=== PATIENT | male | born 1965 | race African-American/Black ===

== ENCOUNTER 2016-09-11 18:54 | Emergency (ER) | payer MEDICAID ==
[~2016-09-11] VITALS: Ht 188 cm; Wt 90.0 kg
[2016-09-11] MEDS ORDERED: PHEN100C4 PO (19:03)
[2016-09-11] MEDS ORDERED: SODIUM CHLORIDE 0.9% 1,000 ML IV ONE (20:45)
[2016-09-11] MEDS ORDERED: NAPROXEN 500MG TABLET PO ONE (20:45)
[2016-09-11 21:01] LABS: BASOPHILS % 0.8 % (0.0-2.0); EOSINOPHILS % 0.7 % (0.0-5.0); HEMATOCRIT. 37.6 % (42.0-52.0); HEMOGLOBIN. 11.9 g/dL (14.0-18.0); LYMPHOCYTES % 19.7 % (20.0-50.0); MEAN CORPUSCULAR HEMOGLOBIN 28.2 pg (28.0-32.0); MEAN CORPUSCULAR HGB CONC 31.8 g/dL (31.0-37.0); MEAN CORPUSCULAR VOLUME 88.8 fL (80.0-94.0); MEAN PLATELET VOLUME 8.1 fl (7.4-10.4); MONOCYTES % 7.5 % (2.0-8.0); NEUTROPHILS % 71.3 % (40.0-76.0); PLATELET 202 x1000/uL (130-400); RED BLOOD CELL COUNT 4.23 mill/uL (4.7-6.1); RED CELL DISTRIBUTION WIDTH 14.6 % (11.6-14.6); WHITE BLOOD COUNT 10.4 x1000/uL (4.5-11.0)
[2016-09-11 21:11] LABS: ALANINE AMINOTRANSFERASE 28 IU/L (13-61); ALBUMIN 3.3 g/dL (3.4-5.0); ANION GAP 10; CALCIUM 9.2 mg/dL (8.5-10.1); CARBON DIOXIDE 31 mEq/L (21-32); CHLORIDE 108 mEq/L (98-107); INDEX HEMOLYSI 1 (1-3); INDEX ICTERIC 1 (1-4); INDEX LIPEMIC 1 (1-3); UREA NITROGEN BLOOD 18 mg/dL (7-21); eGFR > 60 mL/min (>60)
[2016-09-11 21:32] LABS: CLARITY URINE CLEAR (CLEAR); COLOR URINE YELLOW (YELLOW); GLUCOSE URINE NEGATIVE (NEGATIVE); KETONES URINE NEGATIVE (NEGATIVE); LEUKOCYTE ESTERASE URINE NEGATIVE (NEGATIVE); NITRITE URINE NEGATIVE (NEGATIVE); OCCULT BLOOD URINE NEGATIVE (NEGATIVE); PROTEIN URINE NEGATIVE (NEGATIVE); SPECIFIC GRAVITY URINE 1.021 (1.005-1.030)
[2016-09-11] MEDS ORDERED: PHENYTOIN SODIUM 1,000 MG in SODIUM CHLORIDE 0.9% 100 ML IV NR (22:15)
[2016-09-11 23:00] VITALS: BP 126/76
== END 2016-09-12 01:20 | disposition home or self-care (01) ==
LOC: ER 19:17
DX: G40.909 Epilepsy, unspecified, not intractable, without status epilepticus (principal)
CPT/HCPCS: 36415; 80053; 80185; 81003; 85025; 96361; 96365; 96366; 99285; J1165; Z7610; J7030; J7050

== ENCOUNTER 2017-01-06 09:42 | Emergency (ER) | payer MEDICAID ==
[~2017-01-06] VITALS: Ht 177.8 cm; Wt 80.0 kg
[~2017-01-06 09:42] MED LIST: PHEN100C4 PO
[2017-01-06] MEDS ORDERED: SODIUM CHLORIDE 0.9% 1,000 ML IV ONE (09:52)
[2017-01-06 10:42] LABS: BASOPHILS % 0.5 % (0.0-2.0); EOSINOPHILS % 0.8 % (0.0-5.0); HEMATOCRIT. 35.6 % (42.0-52.0); HEMOGLOBIN. 11.3 g/dL (14.0-18.0); LYMPHOCYTES % 15.9 % (20.0-50.0); MEAN CORPUSCULAR HEMOGLOBIN 27.9 pg (28.0-32.0); MEAN CORPUSCULAR VOLUME 87.9 fL (80.0-94.0); MEAN PLATELET VOLUME 8.2 fl (7.4-10.4); MONOCYTES % 7.4 % (2.0-8.0); NEUTROPHILS % 75.4 % (40.0-76.0); PLATELET 212 x1000/uL (130-400); RED BLOOD CELL COUNT 4.05 mill/uL (4.7-6.1); RED CELL DISTRIBUTION WIDTH 14.2 % (11.6-14.6)
[2017-01-06 10:44] LABS: PARTIAL THROMBOPLASTIN TIME 25.4 sec (24.0-34.0); PROTHROMBIN TIME 10.7 sec
[2017-01-06 10:50] LABS: CARBON DIOXIDE 28 mEq/L (21-32); CHLORIDE 109 mEq/L (98-107); ETHANOL BLOOD < 10 mg/dL; PHENYTOIN 0.6 ug/mL (10-20)
[2017-01-06] MEDS ORDERED: PHENYTOIN SODIUM 1,000 MG in SODIUM CHLORIDE 0.9% 100 ML IV ONE (11:00)
[2017-01-06] MEDS ORDERED: CARBAMAZEPINE 100MG TABLET CHEW PO ONE (12:00)
[2017-01-06 13:37] VITALS: BP 122/87
== END 2017-01-06 13:41 | disposition home or self-care (01) ==
LOC: ER 09:48
DX: S00.83XA Contusion of other part of head, initial encounter (principal); R56.9 Unspecified convulsions; R79.89 Other specified abnormal findings of blood chemistry; I10 Essential (primary) hypertension; Z91.19 Patient's noncompliance with other medical treatment and regimen; X58.XXXA Exposure to other specified factors, initial encounter; Y93.89 Activity, other specified; Y92.89 Other specified places as the place of occurrence of the external cause; Y99.8 Other external cause status
CPT/HCPCS: 36415; 70450; 80048; 80156; 80185; 83735; 85025; 85610; 85730; 96365; 96366; 99285; G0482; J1165; J7030; J7050

== ENCOUNTER 2017-01-08 20:01 | Emergency (ER) | payer MEDICAID ==
[~2017-01-08] VITALS: Ht 185.4 cm; Wt 90.0 kg
[2017-01-09 00:02] LABS: ETHANOL BLOOD < 10 mg/dL
[2017-01-09 00:09] LABS: CARBAMAZEPINE < 0.5 ug/mL (4-12)
[2017-01-09] MEDS ORDERED: PHENYTOIN SODIUM EXTENDED 100MG CAPSULE PO NR (02:15)
[2017-01-09] MEDS ORDERED: CARBAMAZEPINE 200MG TABLET PO NR (02:15)
[2017-01-09 03:17] VITALS: BP 127/77
== END 2017-01-09 03:52 | disposition home or self-care (01) ==
LOC: ER 21:17
DX: G40.909 Epilepsy, unspecified, not intractable, without status epilepticus (principal); R03.0 Elevated blood-pressure reading, without diagnosis of hypertension; M95.2 Other acquired deformity of head; Z87.820 Personal history of traumatic brain injury; Z98.890 Other specified postprocedural states; F17.210 Nicotine dependence, cigarettes, uncomplicated
CPT/HCPCS: 36415; 80156; 80185; 99284; G0482; Z7610

== ENCOUNTER 2018-01-24 16:14 | Emergency (ER) | payer MEDICAID ==
[~2018-01-24] VITALS: Ht 177.8 cm; Wt 75.0 kg
[~2018-01-24 16:14] MED LIST changes: +KEPP500 PO
[2018-01-24] MEDS ORDERED: BACITRACIN ZINC OINT UDPKT TOP ONE (19:00)
[2018-01-24 20:57] LABS: BASOPHILS % 0.3 % (0.0-2.0); EOSINOPHILS % 0.7 % (0.0-5.0); HEMATOCRIT. 38.5 % (42.0-52.0); HEMOGLOBIN. 12.5 g/dL (14.0-18.0); LYMPHOCYTES % 21.1 % (20.0-50.0); MEAN CORPUSCULAR VOLUME 86.7 fL (80.0-94.0); MEAN PLATELET VOLUME 8.4 fl (7.4-10.4); MONOCYTES % 7.9 % (2.0-8.0); PLATELET 211 x1000/uL (130-400); RED BLOOD CELL COUNT 4.44 mill/uL (4.7-6.1); RED CELL DISTRIBUTION WIDTH 14.8 % (11.6-14.6)
[2018-01-24 21:03] LABS: CHLORIDE 107 mEq/L (98-107)
[2018-01-24] MEDS ORDERED: CARBAMAZEPINE 200MG TABLET PO ONE (21:45)
[2018-01-24 22:37] VITALS: BP 147/89
== END 2018-01-24 22:37 | disposition home or self-care (01) ==
LOC: ER 18:28
DX: S80.211A Abrasion, right knee, initial encounter (principal); R56.9 Unspecified convulsions; F17.200 Nicotine dependence, unspecified, uncomplicated; W01.0XXA Fall on same level from slipping, tripping and stumbling without subsequent striking against object, initial encounter; Y93.9 Activity, unspecified; Y92.9 Unspecified place or not applicable
CPT/HCPCS: 36415; 70450; 71045; 73562; 80053; 80156; 80185; 85025; 99285; Z7610

== ENCOUNTER 2018-01-27 17:57 | Emergency (ER) | payer MEDICAID ==
[~2018-01-27] VITALS: Ht 182.9 cm; Wt 78.0 kg
[2018-01-27 18:03] VITALS: BP 125/82
== END 2018-01-27 20:17 | disposition left against medical advice (07) ==
LOC: ER 17:57
DX: R56.9 Unspecified convulsions (principal)
CPT/HCPCS: 99283

== ENCOUNTER 2018-03-28 10:18 | Emergency (ER) | payer MEDICAID ==
[~2018-03-28] VITALS: Ht 190.5 cm; Wt 75.0 kg
[2018-03-28 11:38] LABS: BASOPHILS % 0.6 % (0.0-2.0); EOSINOPHILS % 1.5 % (0.0-5.0); HEMATOCRIT. 41.3 % (42.0-52.0); HEMOGLOBIN. 13.2 g/dL (14.0-18.0); LYMPHOCYTES % 28.6 % (20.0-50.0); MEAN CORPUSCULAR HEMOGLOBIN 28.7 pg (28.0-32.0); MEAN CORPUSCULAR VOLUME 89.4 fL (80.0-94.0); MEAN PLATELET VOLUME 8.8 fl (7.4-10.4); MONOCYTES % 9.8 % (2.0-8.0); NEUTROPHILS % 59.5 % (40.0-76.0); PLATELET 193 x1000/uL (130-400); RED BLOOD CELL COUNT 4.61 mill/uL (4.7-6.1); RED CELL DISTRIBUTION WIDTH 14.5 % (11.6-14.6)
[2018-03-28 11:40] LABS: CHLORIDE 110 mEq/L (98-107)
[2018-03-28 11:47] LABS: ETHANOL BLOOD < 10 mg/dL
[2018-03-28 11:48] LABS: CARBAMAZEPINE 2.4 ug/mL (4-12)
[2018-03-28 11:50] LABS: PHENOBARBITAL < 2.1 ug/mL (15.0-40.0); VALPROIC ACID < 3.0 ug/mL (50-100)
[2018-03-28 13:53] VITALS: BP 123/80
== END 2018-03-28 13:57 | disposition home or self-care (01) ==
LOC: ER 10:34
DX: R56.9 Unspecified convulsions (principal); H54.40 Blindness, one eye, unspecified eye; F17.200 Nicotine dependence, unspecified, uncomplicated; Z98.890 Other specified postprocedural states; Z79.899 Other long term (current) drug therapy
CPT/HCPCS: 36415; 80053; 80156; 80165; 80184; 80185; 85025; 99284; G0482

== ENCOUNTER 2018-05-01 02:37 | Inpatient (IN) | payer MEDICAID ==
[~2018-05-01] VITALS: Ht 332.7 cm; Wt 66.4 kg
[2018-05-01] MEDS ORDERED: SODIUM CHLORIDE 0.9% 1,000 ML IV ONE (02:49)
[2018-05-01 03:57] LABS: INR 1.1; PROTHROMBIN TIME 10.8 sec (9.1-11.1)
[2018-05-01 03:59] LABS: BASOPHILS % 0.4 % (0.0-2.0); HEMATOCRIT. 36.5 % (42.0-52.0); HEMOGLOBIN. 11.5 g/dL (14.0-18.0); LYMPHOCYTES % 27.9 % (20.0-50.0); MEAN CORPUSCULAR HEMOGLOBIN 28.2 pg (28.0-32.0); MEAN CORPUSCULAR VOLUME 89.6 fL (80.0-94.0); MEAN PLATELET VOLUME 8.1 fl (7.4-10.4); NEUTROPHILS % 61.7 % (40.0-76.0); PLATELET 202 x1000/uL (130-400); RED BLOOD CELL COUNT 4.07 mill/uL (4.7-6.1); RED CELL DISTRIBUTION WIDTH 14.2 % (11.6-14.6)
[2018-05-01 04:02] LABS: CHLORIDE 112 mEq/L (98-107); ETHANOL BLOOD < 10 mg/dL
[2018-05-01] MEDS ORDERED: CLONIDINE 0.1MG TABLET PO PRN (08:00)
[2018-05-01] MEDS ORDERED: LORAZEPAM 2MG/ML CPJ IV PRN (08:00)
[2018-05-01] MEDS ORDERED: ONDANSETRON HCL 4MG/2ML INJ IV PRN (08:00)
[2018-05-01] MEDS ORDERED: GUAIFENESIN 200MG/10ML SUGAR FREE UDC PO PRN (08:00)
[2018-05-01] MEDS ORDERED: DOCUSATE SODIUM 100MG CAPSULE PO PRN (08:00)
[2018-05-01 10:00] VITALS: BP 125/70
[2018-05-01 12:00] VITALS: BP 119/72
[2018-05-01 13:58] VITALS: BP 125/70
[2018-05-01] MEDS: PHENYTOIN SODIUM EXTENDED 100MG CAPSULE PO SCH ×2 (14:53→19:02)
[2018-05-01] MEDS: AMLODIPINE 10MG TABLET PO SCH (14:53)
[2018-05-01] MEDS: GABAPENTIN 300MG CAPSULE PO SCH (14:54)
[2018-05-01] MEDS: HYDROCODONE/ACETAMINOPHEN 5/325MG TABLET PO PRN (14:54)
[2018-05-01 16:40] VITALS: BP 125/73
[2018-05-01] MEDS: SODIUM CHLORIDE 0.9% 1,000 ML IV SCH (19:03)
[2018-05-01 20:00] VITALS: BP 112/66
[2018-05-01] MEDS: CARBAMAZEPINE 200MG TABLET PO SCH (20:47)
[2018-05-01] MEDS ORDERED: POTASSIUM CHLORIDE 20MEQ TABLET SR PO NR (21:30)
[2018-05-01 23:47] VITALS: BP 112/59
[2018-05-02] MEDS: SODIUM CHLORIDE 0.9% 1,000 ML IV SCH ×2 (03:40→16:12)
[2018-05-02 04:47] VITALS: BP 129/74
[2018-05-02 08:00] VITALS: BP 137/59
[2018-05-02] MEDS: AMLODIPINE 10MG TABLET PO SCH (08:32)
[2018-05-02] MEDS: PHENYTOIN SODIUM EXTENDED 100MG CAPSULE PO SCH ×3 (08:32→16:15)
[2018-05-02] MEDS: GABAPENTIN 300MG CAPSULE PO SCH (08:32)
[2018-05-02] MEDS: CARBAMAZEPINE 200MG TABLET PO SCH ×2 (08:32→21:53)
[2018-05-02 10:49] LABS: BASOPHILS % 0.4 % (0.0-2.0); EOSINOPHILS % 0.5 % (0.0-5.0); HEMATOCRIT. 39.2 % (42.0-52.0); HEMOGLOBIN. 12.5 g/dL (14.0-18.0); LYMPHOCYTES % 16.2 % (20.0-50.0); MEAN CORPUSCULAR HEMOGLOBIN 28.6 pg (28.0-32.0); MEAN CORPUSCULAR VOLUME 89.7 fL (80.0-94.0); MEAN PLATELET VOLUME 8.2 fl (7.4-10.4); MONOCYTES % 7.6 % (2.0-8.0); NEUTROPHILS % 75.3 % (40.0-76.0); PLATELET 111 x1000/uL (130-400); RED BLOOD CELL COUNT 4.37 mill/uL (4.7-6.1); RED CELL DISTRIBUTION WIDTH 14.5 % (11.6-14.6)
[2018-05-02 11:46] LABS: CHLORIDE 115 mEq/L (98-107)
[2018-05-02 12:00] VITALS: BP 115/20
[2018-05-02 16:00] VITALS: BP 110/65
[2018-05-02 20:22] VITALS: BP 113/68
[2018-05-02] MEDS: HYDROCODONE/ACETAMINOPHEN 5/325MG TABLET PO PRN (21:53)
[2018-05-02] MEDS: TAMSULOSIN HCL 0.4MG SR CAPSULE PO SCH (21:53)
[2018-05-03 00:11] VITALS: BP 111/64
[2018-05-03 04:00] VITALS: BP 107/55
[2018-05-03 08:00] VITALS: BP 131/59
[2018-05-03] MEDS: AMLODIPINE 10MG TABLET PO SCH (09:40)
[2018-05-03] MEDS: CARBAMAZEPINE 200MG TABLET PO SCH ×2 (09:41→21:35)
[2018-05-03] MEDS: PHENYTOIN SODIUM EXTENDED 100MG CAPSULE PO SCH ×3 (09:41→17:47)
[2018-05-03] MEDS: GABAPENTIN 300MG CAPSULE PO SCH (09:41)
[2018-05-03] MEDS: HYDROCODONE/ACETAMINOPHEN 5/325MG TABLET PO PRN ×2 (09:55→21:38)
[2018-05-03 12:00] VITALS: BP 148/66
[2018-05-03] MEDS: SODIUM CHLORIDE 0.9% 1,000 ML IV SCH (13:00)
[2018-05-03 16:00] VITALS: BP 99/57
[2018-05-03 19:28] VITALS: BP 109/67
[2018-05-03] MEDS: TAMSULOSIN HCL 0.4MG SR CAPSULE PO SCH (21:37)
[2018-05-04] VITALS: BP 117/68
[2018-05-04] MEDS: HYDROCODONE/ACETAMINOPHEN 5/325MG TABLET PO PRN (03:27)
[2018-05-04 04:00] VITALS: BP 118/72
[2018-05-04] MEDS: SODIUM CHLORIDE 0.9% 1,000 ML IV SCH (05:07)
[2018-05-04 08:00] VITALS: BP 119/67
[2018-05-04] MEDS: PHENYTOIN SODIUM EXTENDED 100MG CAPSULE PO SCH ×3 (09:57→18:49)
[2018-05-04] MEDS: GABAPENTIN 300MG CAPSULE PO SCH (09:57)
[2018-05-04] MEDS: CARBAMAZEPINE 200MG TABLET PO SCH ×2 (09:57→20:18)
[2018-05-04 12:00] VITALS: BP 117/67
[2018-05-04] MEDS: AMLODIPINE 10MG TABLET PO SCH (14:54)
[2018-05-04 16:00] VITALS: BP 120/68
[2018-05-04 20:00] VITALS: BP 106/63
[2018-05-04] MEDS: TAMSULOSIN HCL 0.4MG SR CAPSULE PO SCH (20:18)
[2018-05-05] VITALS: BP 112/68
[2018-05-05 04:00] VITALS: BP 124/73
[2018-05-05 08:00] VITALS: BP 121/70
[2018-05-05] MEDS: PHENYTOIN SODIUM EXTENDED 100MG CAPSULE PO SCH ×3 (08:48→16:52)
[2018-05-05] MEDS: AMLODIPINE 10MG TABLET PO SCH (08:48)
[2018-05-05] MEDS: GABAPENTIN 300MG CAPSULE PO SCH (08:48)
[2018-05-05] MEDS: CARBAMAZEPINE 200MG TABLET PO SCH ×2 (08:48→20:46)
[2018-05-05 12:00] VITALS: BP 122/66
[2018-05-05 16:00] VITALS: BP 105/65
[2018-05-05] MEDS: HYDROCODONE/ACETAMINOPHEN 5/325MG TABLET PO PRN (18:13)
[2018-05-05 20:29] VITALS: BP 92/55
[2018-05-05] MEDS: TAMSULOSIN HCL 0.4MG SR CAPSULE PO SCH (20:46)
[2018-05-06] VITALS: BP 113/67
[2018-05-06 04:00] VITALS: BP 119/64
[2018-05-06 08:00] VITALS: BP 120/72
[2018-05-06] MEDS: GABAPENTIN 300MG CAPSULE PO SCH (08:30)
[2018-05-06] MEDS: PHENYTOIN SODIUM EXTENDED 100MG CAPSULE PO SCH ×3 (08:30→17:48)
[2018-05-06] MEDS: CARBAMAZEPINE 200MG TABLET PO SCH ×2 (08:30→20:48)
[2018-05-06] MEDS: AMLODIPINE 10MG TABLET PO SCH (08:31)
[2018-05-06 12:00] VITALS: BP 94/59
[2018-05-06 16:00] VITALS: BP 94/58
[2018-05-06 19:41] VITALS: BP 110/71
[2018-05-06] MEDS ORDERED: HYDROCODONE/ACETAMINOPHEN 5/325MG TABLET PO PRN (19:45)
[2018-05-06] MEDS: TAMSULOSIN HCL 0.4MG SR CAPSULE PO SCH (20:48)
[2018-05-07 00:15] VITALS: BP 114/62
[2018-05-07 04:00] VITALS: BP 98/61
[2018-05-07 07:59] VITALS: BP 116/67
[2018-05-07] MEDS: PHENYTOIN SODIUM EXTENDED 100MG CAPSULE PO SCH ×3 (09:00→17:13)
[2018-05-07] MEDS ORDERED: LORAZEPAM 2MG/ML CPJ IV PRN (09:00)
[2018-05-07 12:03] VITALS: BP 109/70
[2018-05-07] MEDS: DEXAMETHASONE 4MG/ML 1ML VIAL IV SCH ×3 (12:28→23:16)
[2018-05-07] MEDS: GABAPENTIN 300MG CAPSULE PO SCH (12:36)
[2018-05-07] MEDS: CARBAMAZEPINE 200MG TABLET PO SCH ×2 (12:36→21:03)
[2018-05-07] MEDS: AMLODIPINE 10MG TABLET PO SCH (12:40)
[2018-05-07 16:03] VITALS: BP 96/57
[2018-05-07 20:03] VITALS: BP 104/64
[2018-05-07] MEDS: TAMSULOSIN HCL 0.4MG SR CAPSULE PO SCH (21:03)
[2018-05-08] VITALS (42 sets, daily range): BP systolic 93–153; BP diastolic 49–94
[2018-05-08] MEDS: DEXAMETHASONE 4MG/ML 1ML VIAL IV SCH ×3 (05:15→18:27)
[2018-05-08] MEDS ORDERED: NORMAL SALINE 0.9% 10 ML SYR ONE (06:55)
[2018-05-08] MEDS ORDERED: BACITRACIN 50,000 UNITS/VIAL ONE (06:55)
[2018-05-08] MEDS ORDERED: GELATIN SPONGE,ABSORBABLE 12-7MM SPONGE ONE (06:55)
[2018-05-08] MEDS ORDERED: THROMBIN (BOVINE) 5000 UNITS/VIAL TOP ONE (06:55)
[2018-05-08] MEDS ORDERED: LIDOCAINE HCL/EPINEPHRINE 1%-EPI 1:100,000 20 ML VIAL ONE (06:55)
[2018-05-08] MEDS: AMLODIPINE 10MG TABLET PO SCH (08:11)
[2018-05-08] MEDS: CARBAMAZEPINE 200MG TABLET PO SCH ×2 (09:17→21:42)
[2018-05-08] MEDS: GABAPENTIN 300MG CAPSULE PO SCH (09:17)
[2018-05-08] MEDS: PHENYTOIN SODIUM EXTENDED 100MG CAPSULE PO SCH ×3 (09:17→18:27)
[2018-05-08 10:30] LABS: INR 1.1; PARTIAL THROMBOPLASTIN TIME 26.5 sec (23.4-31.0); PROTHROMBIN TIME 10.6 sec (9.1-11.1)
[2018-05-08] MEDS ORDERED: FENTANYL CITRATE/PF 50MCG/ML 2ML VIAL ONE ×2 (10:32→13:25)
[2018-05-08] MEDS ORDERED: ROCURONIUM BROMIDE 10MG/ML VIAL 5ML IV ONE ×2 (10:32→13:06)
[2018-05-08] MEDS ORDERED: MIDAZOLAM HCL 2 MG/2 ML VIAL ONE ×2 (10:32→12:40)
[2018-05-08 10:44] LABS: BASOPHILS % 0.1 % (0.0-2.0); HEMATOCRIT. 40.3 % (42.0-52.0); LYMPHOCYTES % 10.2 % (20.0-50.0); MEAN CORPUSCULAR HEMOGLOBIN 28.6 pg (28.0-32.0); MEAN CORPUSCULAR VOLUME 88.6 fL (80.0-94.0); MEAN PLATELET VOLUME 8.5 fl (7.4-10.4); MONOCYTES % 4.4 % (2.0-8.0); NEUTROPHILS % 85.3 % (40.0-76.0); PLATELET 213 x1000/uL (130-400); RED BLOOD CELL COUNT 4.55 mill/uL (4.7-6.1); RED CELL DISTRIBUTION WIDTH 14.5 % (11.6-14.6)
[2018-05-08] MEDS ORDERED: DEXAMETHASONE 4MG/ML 1ML VIAL ONE (10:57)
[2018-05-08] MEDS ORDERED: PROPOFOL 200MG/20ML VIAL IV ONE (11:05)
[2018-05-08 11:33] LABS: CHLORIDE 105 mEq/L (98-107)
[2018-05-08 11:34] LABS: CLARITY URINE CLOUDY (CLEAR); COLOR URINE YELLOW (YELLOW); KETONES URINE NEGATIVE (NEGATIVE); LEUKOCYTE ESTERASE URINE NEGATIVE (NEGATIVE); NITRITE URINE POSITIVE (NEGATIVE); OCCULT BLOOD URINE TRACE (NEGATIVE); PROTEIN URINE NEGATIVE (NEGATIVE); SPECIFIC GRAVITY URINE 1.016 (1.005-1.030); UROBILINOGEN URINE 0.2 E.U./dL (0.2-1.0)
[2018-05-08] MEDS ORDERED: NICARDIPINE 50 MG in SODIUM CHLORIDE 0.9% 230 ML IV PRN (12:15)
[2018-05-08] MEDS ORDERED: CEFAZOLIN SODIUM 1000MG/VIAL ONE (13:17)
[2018-05-08] MEDS ORDERED: GLYCOPYRROLATE 0.2 MG/ML 2ML VIAL ONE (13:58)
[2018-05-08] MEDS ORDERED: NEOSTIGMINE METHYLSULFATE 1MG/ML 10 ML VIAL ONE (13:58)
[2018-05-08] MEDS ORDERED: CEFAZOLIN SODIUM 1000MG/VIAL IV SCH (14:00)
[2018-05-08] MEDS ORDERED: NITROPRUSSIDE 50 MG in SODIUM CHLORIDE 0.9% 250 ML IV PRN (14:00)
[2018-05-08] MEDS ORDERED: ONDANSETRON HCL 4MG/2ML INJ ONE (14:04)
[2018-05-08] MEDS ORDERED: ONDANSETRON INJ IV PRN (15:15)
[2018-05-08] MEDS ORDERED: DIPHENHYDRAMINE INJ IV PRN (15:15)
[2018-05-08] MEDS ORDERED: HYDROMORPHONE PCA 10MG/50ML IV PRN (15:15)
[2018-05-08] MEDS ORDERED: NALOXONE INJ IV PRN (15:15)
[2018-05-08] MEDS ORDERED: MORPHINE SULFATE 4 MG/ML CPJ (NOT FOR IM USE) IV ONE ×2 (15:15→15:20)
[2018-05-08] MEDS: DEXT 5%/LACTATED RINGERS 1,000 ML IV SCH ×2 (15:33→21:42)
[2018-05-08] MEDS: CEFAZOLIN 1000MG PREMIX 50 ML IV SCH ×2 (16:15→21:42)
[2018-05-08] MEDS: TAMSULOSIN HCL 0.4MG SR CAPSULE PO SCH (21:42)
[2018-05-09] VITALS (66 sets, daily range): BP systolic 101–138; BP diastolic 48–94
[2018-05-09] MEDS: DEXAMETHASONE 4MG/ML 1ML VIAL IV SCH ×5 (00:22→23:26)
[2018-05-09 06:02] LABS: BASOPHILS % 0.1 % (0.0-2.0); HEMATOCRIT. 37.9 % (42.0-52.0); HEMOGLOBIN. 11.9 g/dL (14.0-18.0); LYMPHOCYTES % 8.5 % (20.0-50.0); MEAN CORPUSCULAR VOLUME 89.1 fL (80.0-94.0); MEAN PLATELET VOLUME 8.8 fl (7.4-10.4); MONOCYTES % 6.8 % (2.0-8.0); NEUTROPHILS % 84.6 % (40.0-76.0); PLATELET 187 x1000/uL (130-400); RED BLOOD CELL COUNT 4.25 mill/uL (4.7-6.1)
[2018-05-09] MEDS: CEFAZOLIN 1000MG PREMIX 50 ML IV SCH ×3 (06:02→21:08)
[2018-05-09 06:10] LABS: CHLORIDE 101 mEq/L (98-107)
[2018-05-09] MEDS ORDERED: PHENYTOIN SODIUM 100MG/2ML VIAL IV SCH ×2 (09:40→14:00)
[2018-05-09] MEDS: AMLODIPINE 10MG TABLET PO SCH (09:47)
[2018-05-09] MEDS: GABAPENTIN 300MG CAPSULE PO SCH (09:47)
[2018-05-09] MEDS: CARBAMAZEPINE 200MG TABLET PO SCH ×2 (10:08→21:09)
[2018-05-09] MEDS: IPRATROPIUM/ALBUTEROL 0.5-3(2.5)MG/3ML NEB HHN SCH ×3 (13:35→20:18)
[2018-05-09] MEDS: ACETYLCYSTEINE 100MG/ML 10% VIAL 4ML INH SCH (13:36)
[2018-05-09] MEDS: DEXT 5%/LACTATED RINGERS 1,000 ML IV SCH (13:54)
[2018-05-09] MEDS ORDERED: PHENYTOIN SODIUM EXTENDED 100MG CAPSULE PO NR (16:00)
[2018-05-09] MEDS: TAMSULOSIN HCL 0.4MG SR CAPSULE PO SCH (21:09)
[2018-05-09] MEDS: PHENYTOIN SODIUM EXTENDED 100MG CAPSULE PO SCH (21:12)
[2018-05-10] VITALS (11 sets, daily range): BP systolic 104–123; BP diastolic 53–72
[2018-05-10] MEDS: IPRATROPIUM/ALBUTEROL 0.5-3(2.5)MG/3ML NEB HHN SCH ×2 (04:25→21:00)
[2018-05-10] MEDS: CEFAZOLIN 1000MG PREMIX 50 ML IV SCH (05:34)
[2018-05-10] MEDS: DEXAMETHASONE 4MG/ML 1ML VIAL IV SCH ×4 (05:43→23:45)
[2018-05-10] MEDS: PHENYTOIN SODIUM EXTENDED 100MG CAPSULE PO SCH ×3 (07:03→21:43)
[2018-05-10] MEDS: GABAPENTIN 300MG CAPSULE PO SCH (08:06)
[2018-05-10] MEDS: CARBAMAZEPINE 200MG TABLET PO SCH ×2 (08:06→21:43)
[2018-05-10] MEDS: AMLODIPINE 10MG TABLET PO SCH (08:06)
[2018-05-10] MEDS: DOCUSATE SODIUM 100MG CAPSULE PO SCH (16:30)
[2018-05-10] MEDS: LACTULOSE 20G/30ML UDC PO SCH ×3 (16:30→21:43)
[2018-05-10] MEDS: POLYETHYLENE GLYCOL 3350 (17GM) 1 DOSE PACK PO SCH (21:43)
[2018-05-10] MEDS: TAMSULOSIN HCL 0.4MG SR CAPSULE PO SCH (21:43)
[2018-05-11] VITALS: BP 106/56
[2018-05-11 04:00] VITALS: BP 101/63
[2018-05-11] MEDS: IPRATROPIUM/ALBUTEROL 0.5-3(2.5)MG/3ML NEB HHN SCH ×5 (04:07→20:54)
[2018-05-11] MEDS: ACETYLCYSTEINE 100MG/ML 10% VIAL 4ML INH SCH ×5 (06:00→22:00)
[2018-05-11] MEDS: DEXAMETHASONE 4MG/ML 1ML VIAL IV SCH ×3 (06:06→17:09)
[2018-05-11] MEDS: PHENYTOIN SODIUM EXTENDED 100MG CAPSULE PO SCH ×3 (06:07→21:37)
[2018-05-11 08:00] VITALS: BP 102/64
[2018-05-11] MEDS: DOCUSATE SODIUM 100MG CAPSULE PO SCH ×2 (08:44→17:09)
[2018-05-11] MEDS: CARBAMAZEPINE 200MG TABLET PO SCH ×2 (08:44→21:38)
[2018-05-11] MEDS: GABAPENTIN 300MG CAPSULE PO SCH (08:44)
[2018-05-11] MEDS: AMLODIPINE 10MG TABLET PO SCH (08:49)
[2018-05-11 12:00] VITALS: BP 120/74
[2018-05-11 16:00] VITALS: BP 120/61
[2018-05-11] MEDS ORDERED: NA PHOS,M-B/NA PHOS,DI-BA ENEMA 118ML PR NR (16:30)
[2018-05-11] MEDS: LACTULOSE 20G/30ML UDC PO SCH ×2 (17:09→20:00)
[2018-05-11 20:00] VITALS: BP 108/74
[2018-05-11] MEDS: POLYETHYLENE GLYCOL 3350 (17GM) 1 DOSE PACK PO SCH (21:00)
[2018-05-11] MEDS: TAMSULOSIN HCL 0.4MG SR CAPSULE PO SCH (21:37)
[2018-05-12] VITALS: BP 113/64
[2018-05-12] MEDS: LACTULOSE 20G/30ML UDC PO SCH
[2018-05-12] MEDS: DEXAMETHASONE 4MG/ML 1ML VIAL IV SCH ×4 (00:26→17:01)
[2018-05-12] MEDS: ACETYLCYSTEINE 100MG/ML 10% VIAL 4ML INH SCH ×5 (00:45→20:32)
[2018-05-12 04:00] VITALS: BP 119/73
[2018-05-12] MEDS: IPRATROPIUM/ALBUTEROL 0.5-3(2.5)MG/3ML NEB HHN SCH ×5 (04:09→19:57)
[2018-05-12] MEDS: PHENYTOIN SODIUM EXTENDED 100MG CAPSULE PO SCH ×3 (05:37→20:31)
[2018-05-12 08:21] VITALS: BP 112/67
[2018-05-12] MEDS: DOCUSATE SODIUM 100MG CAPSULE PO SCH ×2 (08:29→17:01)
[2018-05-12] MEDS: AMLODIPINE 10MG TABLET PO SCH (08:29)
[2018-05-12] MEDS: GABAPENTIN 300MG CAPSULE PO SCH (08:29)
[2018-05-12] MEDS: CARBAMAZEPINE 200MG TABLET PO SCH ×2 (08:29→20:31)
[2018-05-12] MEDS ORDERED: BISACODYL 10MG SUPP PR SCH (09:00)
[2018-05-12] MEDS ORDERED: NA PHOS,M-B/NA PHOS,DI-BA ENEMA 118ML PR PRN (09:00)
[2018-05-12 12:23] VITALS: BP 130/79
[2018-05-12 15:27] VITALS: BP 114/75
[2018-05-12 20:00] VITALS: BP 112/75
[2018-05-12] MEDS: TAMSULOSIN HCL 0.4MG SR CAPSULE PO SCH (20:31)
[2018-05-12] MEDS: POLYETHYLENE GLYCOL 3350 (17GM) 1 DOSE PACK PO SCH (20:32)
[2018-05-13] VITALS: BP 95/61
[2018-05-13] MEDS: ACETYLCYSTEINE 100MG/ML 10% VIAL 4ML INH SCH ×2 (00:57→11:25)
[2018-05-13] MEDS: IPRATROPIUM/ALBUTEROL 0.5-3(2.5)MG/3ML NEB HHN SCH ×6 (00:57→22:23)
[2018-05-13 04:00] VITALS: BP 100/77
[2018-05-13] MEDS: DEXAMETHASONE 4MG/ML 1ML VIAL IV SCH ×4 (05:45→17:46)
[2018-05-13] MEDS: PHENYTOIN SODIUM EXTENDED 100MG CAPSULE PO SCH ×3 (05:48→21:13)
[2018-05-13] MEDS: CARBAMAZEPINE 200MG TABLET PO SCH ×2 (10:39→21:13)
[2018-05-13] MEDS: DOCUSATE SODIUM 100MG CAPSULE PO SCH ×2 (10:39→17:46)
[2018-05-13] MEDS: AMLODIPINE 10MG TABLET PO SCH (10:40)
[2018-05-13] MEDS: GABAPENTIN 300MG CAPSULE PO SCH (10:40)
[2018-05-13 12:00] VITALS: BP 106/72
[2018-05-13] MEDS: NICOTINE 21MG PATCH TD SCH (12:30)
[2018-05-13 13:06] LABS: HIV SCREEN 4G Non Reactive (Non Reactive)
[2018-05-13 16:00] VITALS: BP 113/77
[2018-05-13 20:00] VITALS: BP 114/79
[2018-05-13] MEDS: POLYETHYLENE GLYCOL 3350 (17GM) 1 DOSE PACK PO SCH (21:13)
[2018-05-13] MEDS: TAMSULOSIN HCL 0.4MG SR CAPSULE PO SCH (21:13)
[2018-05-14] VITALS: BP 114/75
[2018-05-14] MEDS: ACETYLCYSTEINE 100MG/ML 10% VIAL 4ML INH SCH ×3 (00:52→16:03)
[2018-05-14] MEDS: DEXAMETHASONE 4MG/ML 1ML VIAL IV SCH ×3 (02:06→12:17)
[2018-05-14 04:00] VITALS: BP 119/72
[2018-05-14] MEDS: IPRATROPIUM/ALBUTEROL 0.5-3(2.5)MG/3ML NEB HHN SCH ×6 (04:02→21:15)
[2018-05-14] MEDS: PHENYTOIN SODIUM EXTENDED 100MG CAPSULE PO SCH ×3 (06:08→20:58)
[2018-05-14] MEDS: DOCUSATE SODIUM 100MG CAPSULE PO SCH ×2 (08:40→18:48)
[2018-05-14] MEDS: GABAPENTIN 300MG CAPSULE PO SCH (08:41)
[2018-05-14] MEDS: CARBAMAZEPINE 200MG TABLET PO SCH ×2 (08:41→20:58)
[2018-05-14] MEDS: AMLODIPINE 10MG TABLET PO SCH (08:42)
[2018-05-14] MEDS: NICOTINE 21MG PATCH TD SCH (08:42)
[2018-05-14 12:00] VITALS: BP 116/81
[2018-05-14] MEDS: LACTULOSE 20G/30ML UDC PO SCH ×3 (14:15→20:58)
[2018-05-14 16:00] VITALS: BP 115/80
[2018-05-14] MEDS ORDERED: DEXAMETHASONE 4MG TABLET PO SCH (18:00)
[2018-05-14 20:00] VITALS: BP 112/82
[2018-05-14] MEDS: TAMSULOSIN HCL 0.4MG SR CAPSULE PO SCH (20:58)
[2018-05-14] MEDS: POLYETHYLENE GLYCOL 3350 (17GM) 1 DOSE PACK PO SCH (20:59)
[2018-05-15] VITALS: BP 106/71
[2018-05-15] MEDS: IPRATROPIUM/ALBUTEROL 0.5-3(2.5)MG/3ML NEB HHN SCH ×2 (00:52→05:10)
[2018-05-15 04:00] VITALS: BP 108/75
[2018-05-15] MEDS: PHENYTOIN SODIUM EXTENDED 100MG CAPSULE PO SCH (05:55)
[2018-05-15] MEDS: AMLODIPINE 10MG TABLET PO SCH (08:33)
[2018-05-15] MEDS: CARBAMAZEPINE 200MG TABLET PO SCH (08:33)
[2018-05-15] MEDS: NICOTINE 21MG PATCH TD SCH (08:33)
[2018-05-15] MEDS: DOCUSATE SODIUM 100MG CAPSULE PO SCH (08:33)
[2018-05-15] MEDS: GABAPENTIN 300MG CAPSULE PO SCH (08:33)
[2018-05-15 08:59] VITALS: BP 94/65
[2018-05-15] MEDS ORDERED: BISACODYL 10MG SUPP PR SCH (09:00)
[2018-05-15] MEDS ORDERED: ENOXAPARIN 40MG/0.4ML SYR SUBCUT SCH (14:30)
[2018-05-16] MEDS ORDERED: DEXAMETHASONE 2MG TABLET PO SCH (18:00)
== END 2018-05-15 11:08 | DRG 321 ==
LOC: ER 02:37 → EDBEDREQ 05:59 → EDBEDREQSVC 05:59 → EDBEDREQTM 05:59 → CANRESERV 07:08 → ENRESERV 07:08 → 6WST 07:25 → EDBEDREQTM 07:29 → EDBEDREQSVC 07:29 → EDBEDREQ 07:29 → ENRESERV 07:59 → MICUNO 05-08 14:39 → 6WST 05-10 04:20
PROVIDERS: ADMIT Hospitalist; ATTEND Hospitalist
PROC: 0RB30ZZ Excision of Cervical Vertebral Disc, Open Approach (ICD-10-PCS; 2018-05-08)
PROC: 4A11X4G Monitoring of Peripheral Nervous Electrical Activity, Intraoperative, External Approach (ICD-10-PCS; 2018-05-08)
PROC: 0RG10A0 Fusion of Cervical Vertebral Joint with Interbody Fusion Device, Anterior Approach, Anterior Column, Open Approach (ICD-10-PCS; principal; 2018-05-08 12:00)
DX: M48.02 Spinal stenosis, cervical region (principal); G82.50 Quadriplegia, unspecified; M50.022 Cervical disc disorder at C5-C6 level with myelopathy; G95.19 Other vascular myelopathies; R13.10 Dysphagia, unspecified; E44.1 Mild protein-calorie malnutrition; G40.909 Epilepsy, unspecified, not intractable, without status epilepticus; I10 Essential (primary) hypertension; F14.10 Cocaine abuse, uncomplicated; H54.61 Unqualified visual loss, right eye, normal vision left eye; M25.78 Osteophyte, vertebrae; F10.10 Alcohol abuse, uncomplicated; R26.9 Unspecified abnormalities of gait and mobility; F17.200 Nicotine dependence, unspecified, uncomplicated; S01.9 Open wound of unspecified part of head; W34.00XD Accidental discharge from unspecified firearms or gun, subsequent encounter; Z82.49 Family history of ischemic heart disease and other diseases of the circulatory system; Z91.14 Patient's other noncompliance with medication regimen; Z79.899 Other long term (current) drug therapy; Z91.19 Patient's noncompliance with other medical treatment and regimen; Z68.1 Body mass index [BMI] 19.9 or less, adult
CPT/HCPCS: 36415; 71045; 72040; 72131; 72141; 72146; 72148; 73030; 80048; 80156; 80185; 83605; 84484; 86850; 86900; 87389; 88304; 88311; 92523; 92610; 93005; 93970; 94640; 97110; 97112; 97163; 97164; 97167; 97168; 97530; 97535; 99285; A4216; C1713; C1893; G0482; J0690; J1100; J1165; J1170; J2060; J2250; J2270; J2405; J2704; J2710; J3010; J3490; J7030; J7040; J7050; J7121; J7608; J7620; J8540; A4315

== ENCOUNTER 2019-02-08 12:02 | Emergency (ER) | payer MEDICAID ==
[~2019-02-08] VITALS: Ht 175.3 cm; Wt 71.0 kg
[2019-02-08] MEDS ORDERED: ACETAMINOPHEN WITH CODEINE 300/30MG TABLET PO STA (12:24)
[2019-02-08 13:16] LABS: BASOPHILS % 0.7 % (0.0-2.0); EOSINOPHILS % 2.6 % (0.0-5.0); HEMATOCRIT. 39.5 % (42.0-52.0); HEMOGLOBIN. 12.9 g/dL (14.0-18.0); LYMPHOCYTES % 30.7 % (20.0-50.0); MEAN CORPUSCULAR HEMOGLOBIN 28.4 pg (28.0-32.0); MEAN CORPUSCULAR VOLUME 87.2 fL (80.0-94.0); MEAN PLATELET VOLUME 7.7 fl (7.4-10.4); MONOCYTES % 12.9 % (2.0-8.0); NEUTROPHILS % 53.1 % (40.0-76.0); PLATELET 201 x1000/uL (130-400); RED BLOOD CELL COUNT 4.53 mill/uL (4.7-6.1); RED CELL DISTRIBUTION WIDTH 14.7 % (11.6-14.6)
[2019-02-08 13:22] LABS: CHLORIDE 107 mEq/L (98-107)
[2019-02-08 13:27] LABS: ETHANOL BLOOD < 10 mg/dL
[2019-02-08] MEDS ORDERED: PHENYTOIN SODIUM EXTENDED 100MG CAPSULE PO ONE (14:30)
[2019-02-08 19:00] VITALS: BP 124/78
== END 2019-02-08 19:09 | disposition home or self-care (01) ==
LOC: ER 12:02
DX: G40.909 Epilepsy, unspecified, not intractable, without status epilepticus (principal); I10 Essential (primary) hypertension; F12.10 Cannabis abuse, uncomplicated; Z86.73 Personal history of transient ischemic attack (TIA), and cerebral infarction without residual deficits; Z79.899 Other long term (current) drug therapy
CPT/HCPCS: 36415; 80185; 80320; 99283; G0480